=== PATIENT | female | born 1970 | race Caucasian/White ===

== ENCOUNTER 2022-03-21 10:51 | Day surgery (SDC) | payer SELFPAY ==
[2022-03-20 09:11] VITALS: BMI 26.6
[2022-03-21] MEDS ORDERED: ceFAZolin SODIUM 1 GM VIAL ONE ×2 (11:01→11:32)
[2022-03-21] MEDS ORDERED: GUM MASTIC/STORAX/MSAL/ALCOHOL 1 DRP DROPSBTL MC ONE (11:02)
[2022-03-21] MEDS ORDERED: GENTAMICIN SO4 80 MG/2 ML VIAL ONE (11:02)
[2022-03-21] MEDS ORDERED: BUPIVACAINE HCL/PF 2.5 MG/ML - 30 ML VIAL IJ ONE (11:19)
[2022-03-21] MEDS ORDERED: MIDAZOLAM HCL 2 MG/2 ML SINGLE DOSE VIAL ONE (11:32)
[2022-03-21] MEDS ORDERED: ONDANSETRON 4 MG/2 ML VIAL ONE ×3 (11:32→15:48)
[2022-03-21] MEDS ORDERED: PROPOFOL 20 ML ONE ×2 (11:32→12:25)
[2022-03-21] MEDS ORDERED: DEXAMETHASONE SOD PHOSPHATE 4 MG/1 ML VIAL ONE ×2 (11:32→12:01)
[2022-03-21] MEDS ORDERED: LIDOCAINE HCL/PF 2% SDV 5ML VIAL ONE (11:32)
[2022-03-21] MEDS ORDERED: SUCCINYLCHOLINE CHLORIDE 200 MG/10 ML SYRINGE ONE (11:32)
[2022-03-21] MEDS ORDERED: BACITRACIN 15 GM TUBE TOPICAL OINTMENT ONE (11:39)
[2022-03-21] MEDS ORDERED: ACETAMINOPHEN INJECTION 100 ML IVPB ONE (11:40)
[2022-03-21] MEDS ORDERED: SCOPOLAMINE HYDROBROMIDE 1 PATCH PATCH.TD72 ONE (11:40)
[2022-03-21] MEDS ORDERED: HYDROmorphone HCL/PF 1 MG/ML VIAL ONE (12:40)
[2022-03-21] MEDS ORDERED: BUPIVACAINE HCL/PF 0.25% (2.5MG/ML) 10 ML VIAL IJ ONE ×2 (12:53→13:43)
[2022-03-21] MEDS ORDERED: oxyCODONE HCL 5 MG TABLET PO PRN ×2 (14:33)
[2022-03-21] MEDS ORDERED: PROMETHAZINE HCL 25 MG/1 ML VIAL IVPUSH PRN (14:33)
[2022-03-21] MEDS ORDERED: ONDANSETRON 4 MG/2 ML VIAL IVPUSH PRN (14:33)
[2022-03-21] MEDS ORDERED: LACTATED RINGERS SOLUTION 1,000 ML IV SCH (14:45)
[2022-03-21 16:10] VITALS: RESP 18; TEMP 97.5
[2022-03-21 16:39] VITALS: BP 120/59; PULSE 71
== END 2022-03-21 17:10 | disposition home or self-care (01) ==
LOC: FASU 10:51
PROVIDERS: ATTEND Surgery Plastic and Reconstructive Surgery
PROC: 0H0V07Z Alteration of Bilateral Breast with Autologous Tissue Substitute, Open Approach (ICD-10-PCS; principal; 2022-03-21 12:17)
DX: N64.81 Ptosis of breast (principal)
CPT/HCPCS: 88305-TC; 94760